=== PATIENT | female | born 1955 ===

== ENCOUNTER 2020-02-13 09:49 | Outpatient (CLI) | payer OTHER | END 2020-02-13 09:51 | disposition home or self-care (01) | LOC: SONOGRAMA 09:49 | DX: D34 Benign neoplasm of thyroid gland (principal) ==

== ENCOUNTER 2024-08-08 09:47 | Outpatient (CLI) | payer OTHER | END 2024-08-08 09:54 | disposition home or self-care (01) | LOC: SONOGRAMA 09:47 | PROVIDERS: ATTEND Pathology Anatomic Pathology | DX: D34 Benign neoplasm of thyroid gland (principal); E07.89 Other specified disorders of thyroid; E04.1 Nontoxic single thyroid nodule ==